=== PATIENT | male | born 2005 | race Two or more races ===

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

== ENCOUNTER 2025-01-25 12:44 | Emergency (ER) | payer OTHER ==
[~2025-01-25] VITALS: Ht 172.7 cm; Wt 76.4 kg
[2025-01-25 12:55] VITALS: BP 130/88; PULSE 118; RESP 18; TEMP 98.1; O2SAT 99
[2025-01-25] MEDS: LIDOCAINE 1% 10 ML VIAL ID ONE (14:24)
[2025-01-25] MEDS: PERTUSS(ACELL),DIPH,TET/PF 0.5 ML SYRINGE [ADULT] IM. ONE (14:40)
== END 2025-01-25 15:17 | disposition home or self-care (01) ==
LOC: EMS 12:47
DX: S81.812A Laceration without foreign body, left lower leg, initial encounter (principal); J45.909 Unspecified asthma, uncomplicated; Z79.51 Long term (current) use of inhaled steroids; W26.8XXA Contact with other sharp object(s), not elsewhere classified, initial encounter; Y93.89 Activity, other specified; Y92.89 Other specified places as the place of occurrence of the external cause; Y99.8 Other external cause status
CPT/HCPCS: 99283; 90715; 90471; 12001; J3490

== ENCOUNTER 2025-02-03 14:35 | Emergency (ER) | payer OTHER ==
[~2025-02-03] VITALS: Ht 175.3 cm; Wt 69.5 kg
[2025-02-03 14:41] VITALS: BP 127/79; PULSE 91; RESP 18; TEMP 98.2; O2SAT 99
== END 2025-02-03 14:50 | disposition home or self-care (01) ==
LOC: EMS 14:35
DX: S80.2 Other superficial injuries of knee (principal); J45.909 Unspecified asthma, uncomplicated; Z79.51 Long term (current) use of inhaled steroids; X58.XXXD Exposure to other specified factors, subsequent encounter
CPT/HCPCS: 99282; Z7502